=== PATIENT | female | born 1995 | race Caucasian/White ===

== ENCOUNTER 2021-10-07 08:10 | Outpatient (REF) | payer OTHER, SELFPAY ==
[2021-10-07 10:00] LABS: Binax Internal Control QC Valid; Binax Lot number: 9864; Binax Now Covid-19 Ag Negative (Negative)
== END 2021-10-07 08:11 | disposition home or self-care (01) ==
LOC: HO.LAB 08:10
PROVIDERS: Visit Provider Internal Medicine
DX: Z20.822 Contact with and (suspected) exposure to COVID-19 (principal)
CPT/HCPCS: 36415; C9803

== ENCOUNTER 2021-12-28 11:02 | Outpatient (REF) | payer OTHER, SELFPAY ==
[2021-12-28 11:36] LABS: COVID-19 Test Negative (Negative)
== END 2021-12-28 11:03 | disposition home or self-care (01) ==
LOC: HO.LAB 11:02
PROVIDERS: Visit Provider Internal Medicine
DX: Z20.822 Contact with and (suspected) exposure to COVID-19 (principal)
CPT/HCPCS: 87635; C9803

== ENCOUNTER 2022-03-15 08:32 | Outpatient (REF) | payer OTHER, SELFPAY ==
[2022-03-15 08:58] LABS: COVID-19 Test Negative (Negative)
== END 2022-03-15 08:33 | disposition home or self-care (01) ==
LOC: HO.LAB 08:32
PROVIDERS: Visit Provider Internal Medicine
DX: Z20.822 Contact with and (suspected) exposure to COVID-19 (principal)
CPT/HCPCS: 87635; C9803

== ENCOUNTER 2022-04-30 14:58 | Outpatient (REF) | payer OTHER, SELFPAY ==
[2022-04-30 15:32] LABS: COVID-19 Test Negative (Negative); IDNOW Serial# 08D9AD1C
== END 2022-04-30 14:59 | disposition home or self-care (01) ==
LOC: HO.LAB 14:58
PROVIDERS: Visit Provider Internal Medicine
DX: Z20.822 Contact with and (suspected) exposure to COVID-19 (principal)
CPT/HCPCS: 87635; C9803

== ENCOUNTER 2022-05-06 12:18 | Outpatient (REF) | payer OTHER, SELFPAY ==
[2022-05-06 13:15] LABS: COVID-19 Test Negative (Negative)
== END 2022-05-06 12:19 | disposition home or self-care (01) ==
LOC: HO.LAB 12:18
PROVIDERS: Visit Provider Internal Medicine
DX: Z20.822 Contact with and (suspected) exposure to COVID-19 (principal)
CPT/HCPCS: 87635; C9803

== ENCOUNTER 2023-06-29 19:24 | Emergency (ER) | payer SELFPAY ==
--- NOTE | 2023-06-29 19:28 | ECG_ITS ---
Test Reason : CHEST PAIN Blood Pressure : / mmHG Vent. Rate : 077 BPM Atrial Rate : 077 BPM P-R Int : 146 ms QRS Dur : 086 ms QT Int : 376 ms P-R-T Axes : 052 007 035 degrees QTc Int : 425 ms Normal sinus rhythm Low voltage QRS Cannot rule out Anterior infarct , age undetermined Abnormal ECG No previous ECGs available Referred By: Rosa M Shah Electronically Signed By:DEANA HICKS
[2023-06-29 19:41] VITALS: BP 133/80; PULSE 79; RESP 16; TEMP 36.7; O2SAT 98; BMI 44.6
--- NOTE | 2023-06-29 19:42 | ED_ITS ---
HPI - Chest Pain General Chief Complaint: General Medical Stated Complaint: chest pain, tingly L leg Time Seen by Provider: 06/29/23 21:04 Source: patient Mode of arrival: ambulatory Limitations: no limitations History of Present Illness HPI narrative: Patient with no known significant past medical history complaining of tingling sensation in all extremities except right lower extremity for last 3 days having chest pain body aches neck pain back pain no recent trauma no bladder or bowel involvement patient ambulatory aside patient on diabetic no family history of multiple sclerosis patient does have cousins with lupus Related Data Previous Rx's Medication Instructions Recorded gabapentin 100 mg capsule 100 mg PO TID #60 caps 06/29/23 Allergies Allergy/AdvReac Type Severity Reaction Status Date / Time No Known Allergies Allergy Verified 06/29/23 19:28 Review of Systems 2 Review of Systems: Yes all other systems are reviewed and are negative [facility] Social History Social History Alcohol intake: current Alcohol intake frequency: a few times a week Smoked in Last 30 Days: Yes Use of substances other than those prescribed or required for medical reasons: No Advance Directives: No Advance Directives Information Provided: No Physical Exam 2 Vital Signs: Vital Signs: Last Vital Signs Temp 97.8 F 06/29/23 22:01 Pulse 82 06/29/23 22:01 Resp 16 06/29/23 22:01 BP 130/69 06/29/23 22:01 Pulse Ox 98 06/29/23 22:01 O2 Del Method Room Air 06/29/23 22:01 BMI result Body Mass Index 44.6 Appearance: Alert. Oriented X3. No acute distress. Eyes: PERRLA, No Nystagmus ENT: Pharynx normal. Oral Mucosa moist Neck: Normal inspection. Neck supple. No midline tenderness CVS: Normal heart rate and rhythm. Pulses normal. Respiratory: No respiratory distress. Equal air entry bilateral, no wheezing/rales/rhonchi Abdomen: Soft and nontender. Bowel sounds are present, no mass palpable, Skin: Skin warm and dry. Normal skin color. Normal skin turgor. Extremities: No lower extremity edema. No calf tenderness back: No focal spinal tenderness good range of movement SLR negative bilateral Neuro: Oriented X 3. No motor deficit. No sensory deficit.No cerebellar signs , cranial nerves II-XII intact Course Course Course Narrative: RME:?28 yo F presents with non radiating chest pain and associated left neck pain with radiation down left arm. Also reports tingling in her LLE from knee down. No SOB, dizziness, N/V, weakness. No recent trauma or injury, chiropractor adjustments. No midline spinous tenderness. Neuro exam non focal. NV intact distally. Ambulating with steady gait. Labs, trop, ekg ordered. Full HPI, ROS and PE to be performed by the primary ED provider. Medications Administered Discontinued Medications Generic Name Dose Route Start Last Admin Trade Name Freq PRN Reason Stop Dose Admin Gabapentin 100 mg 06/29/23 21:28 06/29/23 21:36 Gabapentin 100 Mg Capsule PO 06/29/23 21:29 100 mg ONCE ONE Administration Medical Decision Making Medical Decision Making [facility] Narrative: Patient nonspecific paresthesia etiology not very clear no focal spinal tenderness patient will be given gabapentin advised to follow up with neurologist no objective findings of sensory loss no motor weakness Differential Diagnosis Differential Diagnoses: The differential diagnosis associated with the presentation includes Peripheral neuropathy/metabolic Lab Data [facility] Lab Attestation statement: I reviewed the patient's lab results. 06/29/23 20:13 06/29/23 20:13 Labs: Lab Results 06/29/23 Range/Units 20:13 WBC 5.1 (4.8-10.8) X10*3/uL RBC 4.44 (4.20-5.50) X10*6/uL Hgb 11.9 L (12.0-16.0) g/dl Hct 37.2 (37.0-47.0) % MCV 83.8 (80.0-98.0) fL MCH 26.8 L (27.0-33.0) pg MCHC 32.0 (31.0-35.0) g/dl RDW 15.1 (11.0-16.0) % Plt Count 275 (160-400) X10*3/uL MPV 10.0 (9.4-12.3) fL Immature Gran % (Auto) 0.2 (0.0-0.4) % Neut % (Auto) 53.1 (45-73) % Lymph % (Auto) 34.1 (20-40) % [place] % (Auto) 11.6 H (2-11) % Eos % (Auto) 0.8 (0-4) % Baso % (Auto) 0.2 (0-2) % Lymph # (Auto) 1.7 (1.2-4.9) X10*3/uL [place] # (Auto) 0.6 (0.1-1.2) X10*3/uL Eos # (Auto) 0.0 (0.0-0.4) X10*3/uL Baso # (Auto) 0.0 (0.0-0.2) X10*3/uL Abs Immat Gran (auto) 0.01 (0.00-0.03) X10*3/uL Absolute Neuts (auto) 2.7 (2.0-8.3) x10*3/uL Absolute Nucleated RBC 0.000 (0.0-0.012) X10*3/uL Nucleated RBC % (auto) 0.0 (0.0-0.2) /100WBC Sodium 140 (135-145) mmol/L Potassium 3.8 (3.3-5.1) mmol/L Chloride 106 (96-108) mmol/L Carbon Dioxide 23 (22-29) mmol/L Anion Gap 15 (12-20) BUN 10 (9-16) mg/dL Creatinine 0.81 (0.5-1.4) mg/dL Estim Creat Clear Calc 129.5 Estimated GFR > 60 Random Glucose 96 (60-115) mg/dL Calcium 9.1 (8.4-10.2) mg/dL Magnesium 2.1 (1.6-2.6) mg/dL Total Bilirubin 0.3 (0.0-1.0) mg/dL Direct Bilirubin 0.1 (0.0-0.5) mg/dL AST 27 (5-31) U/L ALT 16 (0-31) U/L Alkaline Phosphatase 92 (39-117) U/L Troponin I High Sens < 2.7 (<3.5-17.0) ng/L Total Protein 7.6 (6.5-8.0) g/dL Albumin 4.1 (3.5-5.0) g/dL Beta HCG, Quant < 2 mIU/mL Discharge Plan Discharge Clinical Impression: Paresthesias Patient Disposition: Home, Self-Care Instructions: Paresthesia (ED) Additional Instructions: Cause of your numbness in extremities is not clear Follow-up with neurologist/PCP for further evaluation Take gabapentin for now Prescriptions: New gabapentin 100 mg capsule 100 mg PO TID Qty: 60 0RF Referrals: Yariel Santos MD [Physician] - 2 weeks Stand Alone Forms: Work/School Release Interventions: ED Discharge Assessment Last Done: 06/29/23 22:02 Discharge Date/Time: 06/29/23 22:04
[2023-06-29 20:18] LABS: MANUAL DIFF FLAG NO
[2023-06-29 20:19] LABS: Basophils Percent Auto 0.2 % (0-2); Eosinophils Percent Auto 0.8 % (0-4); Hematocrit 37.2 % (37.0-47.0); Hemoglobin 11.9 g/dl (12.0-16.0); Imm Gran Abs Auto 0.01 X10*3/uL (0.00-0.03); Imm Gran Pct Auto 0.2 % (0.0-0.4); Lymphocytes Absolute Auto 1.7 X10*3/uL (1.2-4.9); Lymphocytes Percent Auto 34.1 % (20-40); Mean Corpuscular Hemoglobin 26.8 pg (27.0-33.0); Mean Corpuscular Volume 83.8 fL (80.0-98.0); Monocytes Absolute Auto 0.6 X10*3/uL (0.1-1.2); Monocytes Percent Auto 11.6 % (2-11); Neutrophils Absolute Auto 2.7 x10*3/uL (2.0-8.3); Neutrophils Percent Auto 53.1 % (45-73); Platelet Count 275 X10*3/uL (160-400); Red Blood Count 4.44 X10*6/uL (4.20-5.50); Red Cell Distribution Width 15.1 % (11.0-16.0); White Blood Count 5.1 X10*3/uL (4.8-10.8)
[2023-06-29 20:43] LABS: Alanine Aminotransferase 16 U/L (0-31); Albumin Level 4.1 g/dL (3.5-5.0); Alkaline Phosphatase 92 U/L (39-117); Anion Gap 15 (12-20); Aspartate Amino Transferase 27 U/L (5-31); Bilirubin Direct 0.1 mg/dL (0.0-0.5); Bilirubin Total 0.3 mg/dL (0.0-1.0); Blood Urea Nitrogen 10 mg/dL (9-16); Calcium 9.1 mg/dL (8.4-10.2); Carbon Dioxide 23 mmol/L (22-29); Chloride 106 mmol/L (96-108); Creatinine Clr Calc Pharmacy 129.5; Estimated Glomerular Filt Rate > 60; Glucose Random 96 mg/dL (60-115); HCG Quantitative < 2 mIU/mL; Magnesium 2.1 mg/dL (1.6-2.6); Potassium 3.8 mmol/L (3.3-5.1); Sodium 140 mmol/L (135-145); Total Protein 7.6 g/dL (6.5-8.0)
[2023-06-29 20:50] LABS: Troponin-I High Sensitivity < 2.7 ng/L (<3.5-17.0)
[2023-06-29] MEDS: Gabapentin 100 MG CAPSULE PO (21:36)
[2023-06-29 22:01] VITALS: BP 130/69; PULSE 82; RESP 16; TEMP 36.6; O2SAT 98
== END 2023-06-29 22:04 | disposition home or self-care (01) ==
PROVIDERS: Physician Assistant; Emergency Provider Internal Medicine
DX: R07.89 Other chest pain (principal); R20.2 Paresthesia of skin; Z79.899 Other long term (current) drug therapy
CPT/HCPCS: 36415; 80048; 80076; 83735; 84484; 84702; 85025; 93005; 99283; 99284